=== PATIENT | male | born 1960 | race Caucasian/White ===

== ENCOUNTER 2016-10-28 17:39 | Outpatient (CLI) | payer OTHER ==
--- NOTE | 2016-10-28 18:08 | DIAGNOSTIC IMAGING REPORT ---
PROCEDURE: XR CHEST 2 VIEW INDICATION: COUGH TECHNIQUE: PA and lateral views. COMPARISON: Compared to chest x-ray on 08/26/2015. FINDINGS: Lungs are clear. Heart and mediastinum are normal. Mild to moderate degenerative changes of the thoracic spine. IMPRESSION: 1. Negative chest.
== END 2016-10-28 23:00 ==
LOC: XR SRH 17:39
DX: R05 Cough (principal)